=== PATIENT | male | born 1940 | race Caucasian/White ===

== ENCOUNTER 2021-12-22 08:04 | Outpatient (CLI) | payer MEDICARE, BC | END 2021-12-22 08:05 | disposition home or self-care (01) | LOC: CSHWCC 08:04 | PROVIDERS: ATTEND Preventive Medicine Undersea and Hyperbaric Medicine | DX: I87.313 Chronic venous hypertension (idiopathic) with ulcer of bilateral lower extremity (principal); E11.621 Type 2 diabetes mellitus with foot ulcer; E11.622 Type 2 diabetes mellitus with other skin ulcer; L97.311 Non-pressure chronic ulcer of right ankle limited to breakdown of skin; L97.521 Non-pressure chronic ulcer of other part of left foot limited to breakdown of skin; L97.822 Non-pressure chronic ulcer of other part of left lower leg with fat layer exposed; L97.812 Non-pressure chronic ulcer of other part of right lower leg with fat layer exposed; R60.0 Localized edema | CPT/HCPCS: 29581; 97139; G0463; 99204 ==

== ENCOUNTER 2022-01-06 08:15 | Outpatient (CLI) | payer MEDICARE, BC | END 2022-01-06 08:16 | disposition home or self-care (01) | LOC: CSHWCC 08:15 | PROVIDERS: ATTEND Preventive Medicine Undersea and Hyperbaric Medicine | DX: I87.313 Chronic venous hypertension (idiopathic) with ulcer of bilateral lower extremity (principal); R60.0 Localized edema ==

== ENCOUNTER 2022-01-20 08:12 | Outpatient (CLI) | payer MEDICARE, BC | END 2022-01-20 08:13 | disposition home or self-care (01) | LOC: CSHWCC 08:12 | PROVIDERS: ATTEND Nurse Practitioner Family | DX: I87.311 Chronic venous hypertension (idiopathic) with ulcer of right lower extremity (principal); E11.622 Type 2 diabetes mellitus with other skin ulcer; L97.311 Non-pressure chronic ulcer of right ankle limited to breakdown of skin; E11.621 Type 2 diabetes mellitus with foot ulcer; L97.521 Non-pressure chronic ulcer of other part of left foot limited to breakdown of skin; L97.812 Non-pressure chronic ulcer of other part of right lower leg with fat layer exposed | CPT/HCPCS: 29581; 99213; G0463 ==

== ENCOUNTER 2022-02-10 10:01 | Outpatient (CLI) | payer MEDICARE, BC | END 2022-02-10 10:02 | disposition home or self-care (01) | LOC: CSHWCC 10:01 | PROVIDERS: ATTEND Nurse Practitioner Family | DX: I87.313 Chronic venous hypertension (idiopathic) with ulcer of bilateral lower extremity (principal); E11.621 Type 2 diabetes mellitus with foot ulcer; E11.622 Type 2 diabetes mellitus with other skin ulcer; L97.311 Non-pressure chronic ulcer of right ankle limited to breakdown of skin; L97.521 Non-pressure chronic ulcer of other part of left foot limited to breakdown of skin; L97.822 Non-pressure chronic ulcer of other part of left lower leg with fat layer exposed; L97.812 Non-pressure chronic ulcer of other part of right lower leg with fat layer exposed | CPT/HCPCS: 29581 ==

== ENCOUNTER 2022-03-21 09:20 | Outpatient (CLI) | payer MEDICARE, BC | END 2022-03-21 09:21 | disposition home or self-care (01) | LOC: CSHWCC 09:20 | PROVIDERS: ATTEND Nurse Practitioner Family | DX: E11.622 Type 2 diabetes mellitus with other skin ulcer (principal); L97.311 Non-pressure chronic ulcer of right ankle limited to breakdown of skin; E11.621 Type 2 diabetes mellitus with foot ulcer; L97.521 Non-pressure chronic ulcer of other part of left foot limited to breakdown of skin; I87.312 Chronic venous hypertension (idiopathic) with ulcer of left lower extremity; L97.822 Non-pressure chronic ulcer of other part of left lower leg with fat layer exposed; I87.311 Chronic venous hypertension (idiopathic) with ulcer of right lower extremity; L97.812 Non-pressure chronic ulcer of other part of right lower leg with fat layer exposed ==

== ENCOUNTER 2022-04-12 10:28 | Outpatient (CLI) | payer MEDICARE, BC | END 2022-04-12 10:29 | disposition home or self-care (01) | LOC: CSHWCC 10:28 | PROVIDERS: ATTEND Nurse Practitioner Family | DX: E11.621 Type 2 diabetes mellitus with foot ulcer (principal); L97.822 Non-pressure chronic ulcer of other part of left lower leg with fat layer exposed; L97.521 Non-pressure chronic ulcer of other part of left foot limited to breakdown of skin; R60.0 Localized edema | CPT/HCPCS: 29581 ==

== ENCOUNTER 2022-05-10 15:39 | Outpatient (CLI) | payer MEDICARE, BC | END 2022-05-10 15:40 | disposition home or self-care (01) | LOC: CSHWCC 15:39 | PROVIDERS: ATTEND Nurse Practitioner Family | DX: E11.621 Type 2 diabetes mellitus with foot ulcer (principal); L97.521 Non-pressure chronic ulcer of other part of left foot limited to breakdown of skin; R60.0 Localized edema ==

== ENCOUNTER 2022-06-06 11:05 | Outpatient (CLI) | payer MEDICARE, BC | END 2022-06-06 11:06 | disposition home or self-care (01) | LOC: CSHWCC 11:05 | PROVIDERS: ATTEND Nurse Practitioner Family | DX: E11.621 Type 2 diabetes mellitus with foot ulcer (principal); L97.512 Non-pressure chronic ulcer of other part of right foot with fat layer exposed; L97.412 Non-pressure chronic ulcer of right heel and midfoot with fat layer exposed; L97.422 Non-pressure chronic ulcer of left heel and midfoot with fat layer exposed; R60.0 Localized edema | CPT/HCPCS: 87070; 97139; G0463; 87077; 87186; 87205; 99214 ==

== ENCOUNTER 2022-07-12 09:45 | Outpatient (CLI) | payer MEDICARE, BC | END 2022-07-12 09:46 | disposition home or self-care (01) | LOC: CSHWCC 09:45 | PROVIDERS: ATTEND Nurse Practitioner Family | DX: E11.621 Type 2 diabetes mellitus with foot ulcer (principal); L97.512 Non-pressure chronic ulcer of other part of right foot with fat layer exposed; L97.422 Non-pressure chronic ulcer of left heel and midfoot with fat layer exposed; R60.0 Localized edema ==

== ENCOUNTER 2022-08-30 11:19 | Outpatient (CLI) | payer MEDICARE, BC | END 2022-08-30 11:20 | disposition home or self-care (01) | LOC: CSHWCC 11:19 | PROVIDERS: ATTEND Nurse Practitioner Family | DX: R60.0 Localized edema (principal); E11.621 Type 2 diabetes mellitus with foot ulcer; L97.521 Non-pressure chronic ulcer of other part of left foot limited to breakdown of skin; L97.512 Non-pressure chronic ulcer of other part of right foot with fat layer exposed; L97.412 Non-pressure chronic ulcer of right heel and midfoot with fat layer exposed; L89.892 Pressure ulcer of other site, stage 2; L89.612 Pressure ulcer of right heel, stage 2 | CPT/HCPCS: 99215; G0463 ==

== ENCOUNTER 2022-09-20 11:21 | Outpatient (CLI) | payer MEDICARE, BC | END 2022-09-20 11:22 | disposition home or self-care (01) | LOC: CSHWCC 11:21 | PROVIDERS: ATTEND Nurse Practitioner Family | DX: E11.621 Type 2 diabetes mellitus with foot ulcer (principal); L97.412 Non-pressure chronic ulcer of right heel and midfoot with fat layer exposed; R60.0 Localized edema; L89.612 Pressure ulcer of right heel, stage 2; L89.322 Pressure ulcer of left buttock, stage 2; S41.101D Unspecified open wound of right upper arm, subsequent encounter | CPT/HCPCS: 11042; 97139; G0463; 99214 ==